=== PATIENT | male | born 1995 | race Asian ===

== ENCOUNTER 2018-06-13 13:26 | Emergency (ER) | payer SELFPAY ==
[~2018-06-13] VITALS: Ht 170.2 cm; Wt 77.2 kg
[2018-06-13 13:29] VITALS: BP 149/103
== END 2018-06-13 14:28 | disposition home or self-care (01) ==
LOC: ED 14:00
DX: S93.492A Sprain of other ligament of left ankle, initial encounter (principal); S93.622A Sprain of tarsometatarsal ligament of left foot, initial encounter; X50.1XXA Overexertion from prolonged static or awkward postures, initial encounter; Y93.67 Activity, basketball; Y92.328 Other athletic field as the place of occurrence of the external cause; Y99.8 Other external cause status
CPT/HCPCS: 99284